=== PATIENT | female | born 1935 | race Caucasian/White ===

== ENCOUNTER 2018-06-16 17:07 | Emergency (ER) | payer OTHER ==
--- NOTE | 2018-06-16 19:17 | RAD REPORT ---
EXAM DESCRIPTION: CT - Thorax Wo Con - 06/16/2018 6:41 pm CLINICAL HISTORY: Fall, right-sided chest and abdomen pain COMPARISON: None. TECHNIQUE: Axial 5 mm thick images of the chest were obtained without IV contrast. Sagittal and kelvin nal reformatted images generated and reviewed. All CT scans are performed using dose optimization technique as appropriate and may include automated exposure control or mA/KV adjustment according to patient size. FINDINGS: No pulmonary contusion or acute lung parenchymal process. Prominent emphysematous changes are present in the mid and upper lung murguia. Scarring and/ or atelectasis present in the posterior r ight base. Small granuloma noted. No suspicious mass. No pleural thickening or pleural effusion. No p neumothorax. No abnormal mediastinal or hilar masses or lymphadenopathy seen. No gross aortic or pulmonary artery finding suspected. No pericardial effusion. Valve and Coronary artery calcifications are present. Ao rtic calcifications are present without aneurysm or displaced calcification. Nodularity is present breast tissue. No displaced or nondisplaced rib fractures identifiable. No pathologic bone process. Thoracic spine d egenerative changes are present. IMPRESSION: No displaced or nondisplaced rib fracture identified. No acute chest finding. Prominent emphysema changes are present. No pulmonary contusion or acute lung parenchymal process.
--- NOTE | 2018-06-16 19:19 | RAD REPORT ---
EXAM DESCRIPTION: CT - Abdomen Wo Contrast - 06/16/2018 6:45 pm CLINICAL HISTORY: Fall, right-sided chest and abdomen pain COMPARISON: None. TECHNIQUE: Axial [address] imaging of the abdomen was performed. No IV contrast was adm inistered. Oral contrast was administered. All CT scans are performed using dose optimization technique as appropriate and may include automated exposure control or mA/KV adjustment according to patient size. FINDINGS: Lung findings are detailed on separate report. The liver, spleen, and pancreas show no suspicious findings for non IV contrast imaging. Cholelithias is is present. No acute gallbladder finding. No biliary tree dilatation. No hydronephrosis or suspicious renal mass. Isodense masses and pyelonephritis are not excluded on a non IV contrast study. No adrenal abnormality. No acute GI process identified. Moderately large stool volume fills the partially imaged colon. No fr ee air, free fluid or inflammatory stranding. No hernia, mass or bulky lymphadenopathy. Disc and bony degenerative changes are present. No compression fracture. Arterial tree calcifications are present without aneurysm. IMPRESSION: Non contrast CT abdomen imaging showing no acute finding. Nonacute findings detailed in the body of the report.
[2018-06-16] MEDS ORDERED: IBUPROFEN 400 MG TAB ONE (19:33)
[2018-06-16] MEDS ORDERED: HYDROCODONE/APAP 7.5/325 MG TAB ONE (19:33)
--- NOTE | 2018-06-16 19:42 | EDPHYS ---
Physician Documentation [facility] Name: Marilee Chester Age: 83 yrs Sex: Female : 1935 Arrival Date: 06/16/2018 Time: 17:11 Bed 5 Private MD: ED Physician Lance Huggins HPI: 06/16 18:10 This 83 yrs old Female presents to ER via Ambulatory with complaints of Rib cp Pain. 18:10 The patient or guardian reports chest pain that is located primarily in the right lower cp lateral rib area. 18:10 Onset: The symptoms/episode began/occurred 3 day(s) ago. The pain does not radiate. cp 18:10 The chest pain is described as aching. cp 18:10 Associated signs and symptoms: Pertinent positives: shortness of breath, Pertinent cp negatives: abdominal pain, cough, diaphoresis, lower extremity pain, lower extremity swelling, syncope. Patient reports falling off couch onto right lateral chest and striking oxygen tank this past Tuesday. Denies striking head or LOC. Historical: - Allergies: 17:15 No Known Allergies; hj - PMHx: 17:15 Diabetes - NIDDM; COPD; Hypertension; CHF; hj - PSHx: 17:15 Hysterectomy; Tonsillectomy; hj - Ebola Screening: : Patient denies travel to an Ebola-affected area in the 21 days before illness onset. ROS: 18:15 Constitutional: Negative for body aches, chills, fever, poor PO intake. cp 18:15 Eyes: Negative for injury, pain, redness, and discharge. cp 18:15 ENT: Negative for drainage from ear(s), ear pain, sore throat, difficulty swallowing, difficulty handling secretions. 18:15 Cardiovascular: Positive for chest pain, of the right lower lateral chest wall, Negative for edema, palpitations. 18:15 Respiratory: Positive for shortness of breath, Negative for cough, wheezing. 18:15 Abdomen/GI: Negative for vomiting, diarrhea, constipation. 18:15 Back: Negative for pain at rest, pain with movement. 18:15 : Negative for urinary symptoms. 18:15 Skin: Negative for cellulitis, rash. 18:15 Neuro: Negative for altered mental status, dizziness, headache, loss of consciousness, syncope, weakness. 18:15 All other systems are negative. Exam: 18:25 Constitutional: The patient appears in no acute distress, alert, awake, cp non-diaphoretic, non-toxic, well developed, well nourished. 18:25 Head/Face: Normocephalic, atraumatic. cp 18:25 Eyes: Periorbital structures: appear normal, Conjunctiva: normal, no exudate, no injection, Sclera: no appreciated abnormality, Lids and lashes: appear normal, bilaterally. 18:25 ENT: External ear(s): are unremarkable, Ear canal(s): are normal, clear, TM's: bulging, is not appreciated, bilaterally, dullness, bilaterally, erythema, is not appreciated, bilaterally, Nose: is normal, Mouth: Lips: moist, Oral mucosa: pink and intact, moist, Posterior pharynx: is normal, airway is patent, no erythema, no exudate, Voice: is normal. 18:25 Neck: C-spine: vertebral tenderness, is not appreciated, crepitus, is not appreciated. 18:25 Chest/axilla: Inspection: normal, Palpation: crepitus, is not appreciated, tenderness, that is moderate, of the right lateral lower rib area, that partially reproduces the patient's complaints. 18:25 Cardiovascular: Rate: normal, Rhythm: regular. 18:25 Respiratory: the patient does not display signs of respiratory distress, Respirations: normal, no use of accessory muscles, no retractions, no splinting, no tachypnea, labored breathing, is not present, Breath sounds: decreased breath sounds, that are mild, throughout, stridor, is not appreciated, wheezing: is not appreciated. 18:25 Abdomen/GI: Inspection: obese Bowel sounds: active, all quadrants, Palpation: soft, in all quadrants, moderate abdominal tenderness, in the upper posterior aspect of right lateral abdomen and upper anterior aspect of right lateral abdomen, rebound tenderness, is not appreciated, involuntary guarding, is not appreciated. 18:25 Back: vertebral tenderness, is not appreciated. 18:25 Musculoskeletal/extremity: Exam is negative for decreased range of motion, deformity, injury. 18:25 Skin: cellulitis, is not appreciated, no rash present. 18:25 Neuro: Orientation: to person, place \T\ time. Mentation: is normal, Cerebellar function: is grossly normal, Motor: moves all fours, strength is normal, Sensation: is normal. Vital Signs: 17:15 BP 114 / 73; Pulse 75; Resp 20; Temp 98.1(TE); Pulse Ox 95% on R/A; Weight 84.37 kg; hj Height 5 ft. 3 in. (160.02 cm); Pain 10/10; 18:25 Pulse Ox 95% on R/A; cp 19:15 BP 110 / 52; Pulse 85; Resp 19; Pulse Ox 99% on 2 lpm NC; rr5 20:05 BP 113 / 60; Pulse 80; Resp 18; Pulse Ox 98% on 2 lpm NC; rr5 17:15 Body Mass Index 32.95 (84.37 kg, 160.02 cm) hj MDM: 17:50 Patient medically screened. cp 18:00 Differential diagnosis: Chest Wall Injury Pleural Effusion Pneumothorax Pulmonary cp Contusion Rib Fracture. 19:40 Data reviewed: vital signs, nurses notes, radiologic studies, CT scan. cp 19:40 Counseling: I had a detailed discussion with the patient and/or guardian regarding: the cp historical points, exam findings, and any diagnostic results supporting the discharge/admit diagnosis, radiology results, to return to the emergency department if symptoms worsen or persist or if there are any questions or concerns that arise at home. Response to treatment: the patient's symptoms have markedly improved after treatment. ED course: VSS. CT negative for acute or traumatic findings. Pain improved with meds. Will discharge to home for continued monitoring. 06/16 17:58 Order name: CT Chest Wo Con: right lateral rib pain s/p fall 2 days ago; Complete Time: 19:30 06/16 19:31 Interpretation: Report reviewed. 06/16 18:40 Order name: Abdomen Wo Contrast; Complete Time: 19:30 EDMS 06/16 19:31 Interpretation: Report reviewed. cp Administered Medications: 19:26 Drug: Ibuprofen 800 mg Route: PO; fc 20:10 Follow up: Response: No adverse reaction rr5 19:26 Drug: Hydrocodone-Acetaminophen (7.5 mg-325 mg) 1 tabs Route: PO; fc 20:10 Follow up: Response: No adverse reaction rr5 Disposition: 06/16/18 19:41 Discharged to Home. Impression: Other chest pain - from fall off couch. - Condition is Stable. - Discharge Instructions: Rib Contusion. - Prescriptions for Ibuprofen 800 mg Oral Tablet - take 1 tablet by ORAL route every 8 hours As needed take with food; 30 tablet. Tramadol 50 mg Oral Tablet - take 1 tablet by ORAL route every 8 hours as needed; 15 tablet. - Medication Reconciliation Form, Thank You Letter, Antibiotic Education, Prescription Opioid Use form. - Follow up: Private Physician; When: 2 - 3 days; Reason: Recheck today's complaints. - Problem is new. - Symptoms have improved. Addendum: 06/19/2018 07:19 Co-signature as Attending Physician, Lance Huggins MD I agree with the assessment and k dr plan of care. Signatures: Dispatcher [employer] [facility] Malaika Mays RN RN aj1 Lance Huggins MD MD [facility] Rosaura Rosas RN RN Jules Gutierrez RN RN hj Erik George PA PA cp Jose Rosario, RN RN rr5 Corrections: (The following items were deleted from the chart) 06/16 18:04 17:26 Chest Pa And Lat (2 Views)+[id number].[email or web address] ordered. [facility] 20:22 19:41 06/16/2018 19:41 Discharged to Home. Impression: Other chest pain - from fall off rr5 couch. Condition is Stable. Forms are Medication Reconciliation Form, Thank You Letter, Antibiotic Education, Prescription Opioid Use. Follow up: Private Physician; When: 2 - 3 days; Reason: Recheck today's complaints. Problem is new. Symptoms have improved. cp
--- NOTE | 2018-06-16 19:42 | ER ---
Nurse's Notes [facility] Name: Marilee Chester Age: 83 yrs Sex: Female : 1935 Arrival Date: 06/16/2018 Time: 17:11 Bed 5 Private MD: Diagnosis: Other chest pain-from fall off couch Presentation: 06/16 17:12 Presenting complaint: Patient states: i fell off the couch Sabrina, hurt the R side of hj my body, landed on my oxygen machine; now my R rib area is hurting; reports SOB; uses O2 at home, 3-4 L; denies hitting head and LOC:. Transition of care: patient was not received from another setting of care. Onset of symptoms was June 16, 2018. Risk Assessment: Do you want to hurt yourself or someone else? Patient reports no desire to harm self or others. Initial Sepsis Screen: Does the patient meet any 2 criteria? No. Patient's initial sepsis screen is negative. Does the patient have a suspected source of infection? No. Patient's initial sepsis screen is negative. Care prior to arrival: None. 17:12 Method Of Arrival: Ambulatory 17:12 Acuity: TENISHA 4 hj Historical: - Allergies: 17:15 No Known Allergies; hj - PMHx: 17:15 Diabetes - NIDDM; COPD; Hypertension; CHF; hj - PSHx: 17:15 Hysterectomy; Tonsillectomy; hj - Ebola Screening: : Patient denies travel to an Ebola-affected area in the 21 days before illness onset. Screenin:30 Abuse screen: Denies threats or abuse. Denies injuries from another. Nutritional aj1 screening: No deficits noted. Tuberculosis screening: No symptoms or risk factors identified. 19:15 Fall Risk Fall in past 12 months (25 points). No IV (0 pts). Total Gutierrez Fall Scale rr5 indicates Low Risk Score (25-44 pts). Fall prevention measures have been instituted. Side Rails Up X 2 Placed close to Nursing Station Frequent Obs/Assesments occuring Family Present and informed to notify staff if they need to leave bedside As available Patient and Family Educated on Fall Prevention Program and strategies. Assessment: 17:30 General: Appears in no apparent distress. uncomfortable, Behavior is calm, cooperative, aj1 appropriate for age. Pain: Complains of pain in right lateral anterior chest Pain does not radiate. Neuro: Level of Consciousness is awake, alert, obeys commands, Oriented to person, place, time, situation. Cardiovascular: Patient's skin is warm and dry. Respiratory: Airway is patent Respiratory effort is even, unlabored, Respiratory pattern is regular, symmetrical. GI: No signs and/or symptoms were reported involving the gastrointestinal system. : No signs and/or symptoms were reported regarding the genitourinary system. EENT: No signs and/or symptoms were reported regarding the EENT system. Derm: No signs and/or symptoms reported regarding the dermatologic system. Skin is pink, warm \T\ dry. normal. Musculoskeletal: No signs and/or symptoms reported regarding the musculoskeletal system. Circulation, motion, and sensation intact. 18:41 Reassessment: Patient appears in no apparent distress at this time. No changes from aj1 previously documented assessment. Patient and/or family updated on plan of care and expected duration. Pain level reassessed. Patient is alert, oriented x 3, equal unlabored respirations, skin warm/dry/pink. 19:15 Reassessment: Patient appears in no apparent distress at this time. Patient is alert, rr5 oriented x 3, equal unlabored respirations, skin warm/dry/pink. no complaints made.awaiting for Ct scan result. General: Appears in no apparent distress. comfortable, Behavior is calm, cooperative, appropriate for age. Respiratory: Reports pain with movement on the rib cage Airway is patent Respiratory effort is even, unlabored, Respiratory pattern is regular, symmetrical. 19:26 Reassessment: Pt complained of pain. Discussed with Doris GREEN and pt given [place] and Ibuprofen. 20:00 Reassessment: Rosaura CARDOSO spoke to oxygen company and said patient can still use the rr5 oxygen at home. 20:15 Reassessment: Patient appears in no apparent distress at this time. Patient is alert, rr5 oriented x 3, equal unlabored respirations, skin warm/dry/pink. discharge instruction given and explained to patient without complaints made. Vital Signs: 17:15 BP 114 / 73; Pulse 75; Resp 20; Temp 98.1(TE); Pulse Ox 95% on R/A; Weight 84.37 kg; hj Height 5 ft. 3 in. (160.02 cm); Pain 10/10; 18:25 Pulse Ox 95% on R/A; cp 19:15 BP 110 / 52; Pulse 85; Resp 19; Pulse Ox 99% on 2 lpm NC; rr5 20:05 BP 113 / 60; Pulse 80; Resp 18; Pulse Ox 98% on 2 lpm NC; rr5 17:15 Body Mass Index 32.95 (84.37 kg, 160.02 cm) ED Course: 17:11 Patient arrived in ED. as 17:14 Triage completed. hj 17:17 Arm band placed on right wrist. hj 17:30 Patient has correct armband on for positive identification. Bed in low position. Call aj1 light in reach. Side rails up X 1. 17:30 No provider procedures requiring assistance completed. aj1 17:49 Erik George PA is PHCP. cp 17:49 Lance Huggins MD is Attending Physician. cp 17:57 Malaika Mays RN is Primary Nurse. aj1 18:41 CT Chest Wo Con: right lateral rib pain s/p fall 2 days ago In Process Unspecified. EDMS 18:41 Abdomen Wo Contrast In Process Unspecified. EDMS 20:20 Patient did not have IV access during this emergency room visit. rr5 Administered Medications: 19:26 Drug: Ibuprofen 800 mg Route: PO; fc 20:10 Follow up: Response: No adverse reaction rr5 19:26 Drug: Hydrocodone-Acetaminophen (7.5 mg-325 mg) 1 tabs Route: PO; fc 20:10 Follow up: Response: No adverse reaction rr5 Outcome: 19:41 Discharge ordered by MD. cp 20:10 Discharged to home via wheelchair, with family. rr5 20:10 Condition: stable 20:10 Discharge instructions given to patient, family, Instructed on discharge instructions, follow up and referral plans. medication usage, Demonstrated understanding of instructions, follow-up care, medications, Prescriptions given X 2. 20:22 Patient left the ED. rr5 Signatures: Dispatcher [employer] EDMS Malaika Mays RN RN Rosaura Mckenna RN RN fc Martinez, Amelia as Joaquin, Henry, RN RN hj Page, Corey, PA PA cp Roque, Raymond, RN RN rr5 Corrections: (The following items were deleted from the chart) 17:17 17:15 Pulse 75bpm; Resp 20bpm; Pulse Ox 95% RA; Temp 98.1F Temporal; 84.37 kg; Height 5 hj ft. 3 in.; BMI: 32.9; Pain 10/10; hj
== END 2018-06-16 20:22 | disposition home or self-care (01) ==
LOC: ER 17:07
DX: R07.89 Other chest pain (principal); W08.XXXA Fall from other furniture, initial encounter; W22.8XXA Striking against or struck by other objects, initial encounter; E11.9 Type 2 diabetes mellitus without complications; I10 Essential (primary) hypertension; J44.9 Chronic obstructive pulmonary disease, unspecified; I50.9 Heart failure, unspecified
CPT/HCPCS: 71250; 74150; 99283